=== PATIENT | male | born 1945 | race Caucasian/White ===

== ENCOUNTER → 2021-08-12 | Outpatient (CLI) | payer MEDICARE, OTHER ==
--- NOTE | 2021-08-12 16:09 | KCIC ---
EXAM: Lumbar spine MRI without contrast. HISTORY: Stenosis. TECHNIQUE: Multiplanar, multisequence magnetic resonance imaging of the lumbar spine was performed wi thout contrast. COMPARISON: Report from a study performed 04/03/2013 FINDINGS: There is instrumented posterior spinal fusion with disc space fusion device placement and b kamila bridging across the disc space at L5-S1. There is a 1.4 cm grade 1 anterolisthesis at this level. There is 4 mm grade 1 anterolisthesis of L4 on L5. There is mild scoliosis. There is multilevel endplate remodeling. There is associated disc space narrowing primarily at and T1 1-T12. There are few endplate Schmorl's nodes and osseous hemangiomas. There is no acute or subacute fracture or suspicious osseous finding. The conus terminates at L1-L2. The phytochemistry professor images demonstrate a 5.5 cm cyst within the left kidney, not formally assessed on this exam. This demonstrates irregular wall thickening or solid mural component and a suspected fluid fluid level, measuring 6.6 cm in maxim um dimension. At T11-T12, there is a disc bulge and endplate remodeling. There is mild bilateral facet arthropathy. There is no stenosis. At T12-L1, there is no stenosis. At L1-L2, there is no stenosis. At L2-L3, there is a disc bulge and endplate remodeling. There is prominent dorsal epidural fat. Ther e is minimal central canal stenosis. At L3-L4, there is a shallow right foraminal disc protrusion and annular tear superimposed on a disc bulge. There is mild right facet arthropathy. There is prominent dorsal epidural fat. There is mild r ight foraminal stenosis with abutment the exiting right L3 nerve root. There is minimal central canal stenosis. At L4-L5, there is a disc bulge and endplate remodeling. There is moderate to severe bilateral facet arthropathy and fluid within the facet joints. There is grade 1 anterolisthesis. There is mild bilate ral foraminal stenosis. There are right hemilaminectomy changes. At L5-S1, there is instrumented fusion. There is grade 1 anterolisthesis. There is moderate to severe right and severe left foraminal stenosis with abutment of the exiting L5 nerve roots. There are part ial laminotomy changes. IMPRESSION: 1. Instrumented fusion at L5-S1, with partial bony bridging across the disc space. There is grade 1 a nterolisthesis contributing to moderate to severe right and severe left foraminal stenosis at this le sarika. 2. 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 This results in minimal central canal stenosis at L2-L3, mild right foraminal stenosis with a butment the exiting right L3 nerve root and minimal central canal stenosis at L3-4, and mild bilatera l foraminal stenosis at L4-L5. 3. Grade 1 anterolisthesis of L5 on S1, and to lesser extent, L4 and L5. There are associated pars de fects at L5-S1. 4. Complicated cystic lesion with internal debris and possible solid mural component within the super ior left kidney measuring 6.6 cm. Correlate with a renal sonogram or a renal protocol CT or MRI. Electronically signed by: Tiff Lopez MD (08/12/2021 4:06 PM) [id number]
== END ==
LOC: KCIC MRI 14:30
PROVIDERS: ATTEND Family Medicine
DX: M47.816 Spondylosis without myelopathy or radiculopathy, lumbar region (principal); M47.815 Spondylosis without myelopathy or radiculopathy, thoracolumbar region; M48.07 Spinal stenosis, lumbosacral region; M43.17 Spondylolisthesis, lumbosacral region; N28.89 Other specified disorders of kidney and ureter; M48.8X6 Other specified spondylopathies, lumbar region; M51.26 Other intervertebral disc displacement, lumbar region; M41.86 Other forms of scoliosis, lumbar region; Z98.1 Arthrodesis status
CPT/HCPCS: 72148